=== PATIENT | female | born 1990 | race Caucasian/White ===

== ENCOUNTER 2016-04-22 14:41 | Emergency (ER) | payer OTHER ==
[~2016-04-22] VITALS: Ht 160 cm; Wt 83.5 kg
[2016-04-22 14:59] VITALS: BP 125/94
--- NOTE | 2016-04-22 15:02 | NUR ---
PATIENT AMBULATED TO ER BED 4.
[2016-04-22] MEDS ORDERED: NACL 0.9% 1,000 ML IV ONE (15:10)
--- NOTE | 2016-04-22 15:13 | NUR ---
Patient being evaluated by physician at bedside.
--- NOTE | 2016-04-22 15:22 | NUR ---
PATIENT PRESENTS TO ED WITH GENERALIZED WEAKNESS . PT STATES SHE WAS FEELING ANXIOUS 2 DAYS AGO AND HER UNCLE GAVE HER 6 PILLS TO CALM DOWN, PT. STATES SHE LATER FOUND OUT THEY WERE EFFEXOR . DENIES N/V/D; SKIN IS PINK/WARM/DRY; AAOX4 WITH EVEN AND STEADY GAIT; LUNGS CLEAR BL; HR EVEN AND REGULAR; PT DENIES ANY FEVER, CP, SOB, OR COUGH AT THIS TIME; PATIENT STATES PAIN OF 7/10 AT THIS TIME; VSS; PATIENT POSITIONED FOR COMFORT; HOB ELEVATED; BEDRAILS UP X2; BED DOWN. ER MD MADE AWARE OF PT STATUS.
[2016-04-22 15:29] LABS: BASOPHILS # (AUTO) 0.2 K/uL (0.00-0.22); BASOPHILS % (AUTO) 2.1 % (0.0-2.0); EOSINOPHILS # (AUTO) 0.4 K/uL (0-0.4); EOSINOPHILS % (AUTO) 3.6 % (0.0-4.0); HEMATOCRIT 38.7 % (36-48); HEMOGLOBIN 12.3 g/dL (12.0-16.0); MEAN CORPUSCULAR HEMOGLOBIN 25 pg (27-31); MEAN CORPUSCULAR HGB CONC 32 g/dL (33-37); MEAN CORPUSCULAR VOLUME 79 fL (80-94); MONOCYTES # (AUTO) 0.7 K/uL (0.8-1.0); NEUTROPHILS % (AUTO) 58.3 % (42.2-75.2); PLATELET COUNT (AUTO) 337 K/uL (140-450); RED BLOOD CELL COUNT(AUTO) 4.89 MIL/uL (4.20-5.40); WHITE BLOOD COUNT (AUTO) 10.3 K/uL (4.8-10.8)
[2016-04-22 15:43] LABS: ANION GAP 9.8 (8-16); CALCIUM 8.5 mg/dL (8.5-10.1); CARBON DIOXIDE 30.1 mmol/L (21-32); CREATININE 0.8 mg/dL (0.6-1.3); POTASSIUM 3.9 mmol/L (3.5-5.1)
[2016-04-22 15:48] LABS: ALBUMIN 3.6 g/dL (3.4-5.0); TOTAL BILIRUBIN 0.4 mg/dL (0.0-1.0); TOTAL PROTEIN, SERUM 7.6 g/dL (6.4-8.2)
--- NOTE | 2016-04-22 15:58 | NUR ---
PT LYING ON BED COMFORTABLY;NO ACUTE DISTRESS NOTED AT THIS TIME;WILL CONTINUE TO MONITOR PT.
[2016-04-22 16:02] LABS: INR 1.1 (0.8-1.2); PARTIAL THROMBOPLASTIN TIME 30.8 secs (22-35.6); PROTHROMBIN TIME 10.7 secs (10.8-13.4)
[2016-04-22 16:03] LABS: D-DIMER < 100 ng/ml (0-400)
--- NOTE | 2016-04-22 16:53 | NUR ---
PT VERBALIZED"I'M FEELING MUCH BETTER";NO ACUTE DISTRESS NOTED AT THIS TIME;WILL CONTINUE TO MONITOR PT.
--- NOTE | 2016-04-22 17:28 | NUR ---
Patient discharged with v/s stable. Written and verbal after care instructions given and explained.Patient alert, oriented and verbalized understanding of instructions. Ambulatory with steady gait. All questions addressed prior to discharge. ID band removed. Patient advised to follow up with PMD.Opportunity to ask questions provided and answered.ENCOURAGED PT TO INCREASE FLUID INTAKE AND PT AGREED W/ IT.
[2016-04-22 17:29] VITALS: BP 124/62
== END 2016-04-22 17:28 | disposition home or self-care (01) ==
LOC: MED 14:41
DX: T43.215A Adverse effect of selective serotonin and norepinephrine reuptake inhibitors, initial encounter (principal); R42 Dizziness and giddiness; R53.1 Weakness; R53.81 Other malaise; F31.9 Bipolar disorder, unspecified; Y92.89 Other specified places as the place of occurrence of the external cause
CPT/HCPCS: 36415; 71010; 80053; 82553; 83880; 84484; 85025; 85379; 85610; 85730; 93005; 96360; 99285; J7030; Q0092

== ENCOUNTER 2019-06-27 08:23 | Emergency (ER) | payer SELFPAY ==
[~2019-06-27] VITALS: Ht 160 cm; Wt 86.6 kg
[2019-06-27 08:24] VITALS: BP 165/97
--- NOTE | 2019-06-27 08:24 | NUR ---
AMBULATEDTO ER BED 4
--- NOTE | 2019-06-27 08:53 | NUR ---
dr stapleton at bedside
--- NOTE | 2019-06-27 08:53 | NUR ---
c/o 2 bug bites to lower abd x1 day, denies fever. localized tendernessand redness. pain 8/10 in severity to sites. pt states she was working in the yard all day yesterday. pt states she did not see the bug itself. hx bipolar
[2019-06-27 08:59] VITALS: BP 154/85
--- NOTE | 2019-06-27 08:59 | NUR ---
Patient discharged with v/s stable. Written and verbal after care instructions given and explained. Patient alert, oriented and verbalized understanding of instructions. Ambulatory with steady gait. All questions addressed prior to discharge. ID band removed. Patient advised to follow up with PMD. Rx of benadryl given. Patient educated on indication of medication including possible reaction and side effects. Opportunity to ask questions provided and answered. pt instructed that bite itself may be there for approx 1 week. insructed to take tylenol and motrin prn pain keep site clean and dry
== END 2019-06-27 08:59 | disposition home or self-care (01) ==
LOC: MED 08:23
DX: R21 Rash and other nonspecific skin eruption (principal); L29.9 Pruritus, unspecified; W57.XXXA Bitten or stung by nonvenomous insect and other nonvenomous arthropods, initial encounter; Y93.89 Activity, other specified; Y92.89 Other specified places as the place of occurrence of the external cause; Y99.8 Other external cause status
CPT/HCPCS: 99282

== ENCOUNTER 2019-07-23 15:16 | Emergency (ER) | payer MEDICAID ==
[~2019-07-23] VITALS: Ht 160 cm; Wt 87.5 kg
[2019-07-23 15:21] VITALS: BP 119/72
[2019-07-23] MEDS ORDERED: ACETAMINOPHEN 325 MG TAB PO ONE (15:35)
[2019-07-23] MEDS ORDERED: cefTRIAXone 1,000 MG in LIDOCAINE MPF 1% 2.1 ML IM ONE (15:35)
[2019-07-23] MEDS ORDERED: LIDOCAINE MPF 1% 5 ML ONE (15:39)
[2019-07-23] MEDS ORDERED: cefTRIAXone 1,000 MG VIAL ONE (15:39)
[2019-07-23 15:55] VITALS: BP 119/72
== END 2019-07-23 15:56 | disposition home or self-care (01) ==
LOC: MED 15:16
DX: L03.311 Cellulitis of abdominal wall (principal); F32.9 Major depressive disorder, single episode, unspecified; F41.9 Anxiety disorder, unspecified
CPT/HCPCS: 96372; 99283; J0696; J2001

== ENCOUNTER 2019-11-12 13:48 | Emergency (ER) | payer MEDICAID, OTHER ==
[~2019-11-12] VITALS: Ht 157.5 cm; Wt 89.8 kg
[2019-11-12 13:52] VITALS: BP 150/84
--- NOTE | 2019-11-12 13:55 | NUR ---
Pt ambulated to lobby with steady gait
--- NOTE | 2019-11-12 14:12 | NUR ---
Pt ambulated to bed 12
--- NOTE | 2019-11-12 14:14 | NUR ---
28 y/o female from home c/o rash to left upper leg and lower abd x 2 wks. Pt states she had surgery for staph infection a few months ago and feels the same as before. 8/10 burning pain. Redness noted to abd and left upper leg. Skin warm and dry. Has not taken medication for pain. VSS
--- NOTE | 2019-11-12 14:17 | NUR ---
Dr Hurtado at bedside examining pt
--- NOTE | 2019-11-12 14:35 | NUR ---
Patient discharged with v/s stable. Written and verbal after care instructions given and explained. Patient alert, oriented and verbalized understanding of instructions. Ambulatory with steady gait. All questions addressed prior to discharge. ID band removed. Patient advised to follow up with PMD. Rx of Naprosyn 500 and Bactrim 800mg-160mg given. Patient educated on indication of medication including possible reaction and side effects. Opportunity to ask questions provided and answered.
== END 2019-11-12 14:35 | disposition home or self-care (01) ==
LOC: MED 13:48
DX: L03.311 Cellulitis of abdominal wall (principal); R03.0 Elevated blood-pressure reading, without diagnosis of hypertension; F17.210 Nicotine dependence, cigarettes, uncomplicated
CPT/HCPCS: 99283

== ENCOUNTER 2019-12-08 07:07 | Emergency (ER) | payer OTHER ==
[~2019-12-08] VITALS: Ht 160 cm; Wt 84.8 kg
[2019-12-08 07:15] VITALS: BP_SYST 153; BP_DIAS 74; BP_DIAS 76
--- NOTE | 2019-12-08 07:23 | NUR ---
BIBS from home with c/o rash diagnosed 3 days ago at [facility], under breasts, right under arm and left groin. Given antibiotics Bactrim for staph infection, having increased pain 8/. Taking antibiotics as prescribed. A, A, O x4, cooperative, in NAD HOB elevated, VVS, resp even and unlabored Moving all exts w/o difficulty Awaiting evaluation by MD, will continue to monitor
--- NOTE | 2019-12-08 07:32 | NUR ---
MD at bedside to evaluate patient
--- NOTE | 2019-12-08 08:27 | NUR ---
Patient medically cleared for discharge by MD. Right lateral and underarm lesions redressed with gauze and tape. Given copy of discharge instructions and 2 prescriptions. Explained instructionas and scripts. Questions answered. No IV. VVS Resp even and unlabored, in NAD. ID band removed, sressed in street clothes, gait steady. Left ED with all belongings to private auto
== END 2019-12-08 08:20 | disposition home or self-care (01) ==
LOC: MED 07:07
DX: B02.9 Zoster without complications (principal); L03.312 Cellulitis of back [any part except buttock and flank]; L03.313 Cellulitis of chest wall
CPT/HCPCS: 99283

== ENCOUNTER 2020-10-29 14:37 | Emergency (ER) | payer OTHER ==
[~2020-10-29] VITALS: Ht 160 cm; Wt 86.2 kg
[2020-10-29 14:45] VITALS: BP 145/86
[2020-10-29] MEDS ORDERED: CEPH-588 PO (15:04)
[2020-10-29] MEDS ORDERED: NAPR-54 PO (15:04)
--- NOTE | 2020-10-29 15:10 | NUR ---
NO NURSING INTERVENTIONS DONE, NO COMPLETE ASSESSMENT NEEDED.
[2020-10-29 15:11] VITALS: BP 132/81
--- NOTE | 2020-10-29 15:12 | NUR ---
Patient discharged with v/s stable. Written and verbal after care instructions given and explained. Patient alert, oriented and verbalized understanding of instructions. Ambulatory with steady gait. All questions addressed prior to discharge. ID band removed. Patient advised to follow up with PMD. Rx of NAPROXEN AND KEFLEX given. Patient educated on indication of medication including possible reaction and side effects. Opportunity to ask questions provided and answered.
== END 2020-10-29 15:11 | disposition home or self-care (01) ==
LOC: MED 14:37
DX: N61.1 Abscess of the breast and nipple (principal)
CPT/HCPCS: 99283

== ENCOUNTER 2022-10-15 16:24 | Emergency (ER) | payer MEDICAID, OTHER ==
[~2022-10-15] VITALS: Ht 160 cm; Wt 86.2 kg
[~2022-10-15 16:24] MED LIST: CEPH-588 PO; NAPR-54 PO
[2022-10-15 16:32] VITALS: BP 173/98; PULSE 113; RESP 17; TEMP 97.9; O2SAT 98
[2022-10-15 16:35] VITALS: O2SAT 98
[2022-10-15] MEDS ORDERED: CYCLOBENZAPRINE 10 MG TAB PO ONE (16:45)
[2022-10-15] MEDS ORDERED: KETOROLAC 30 MG/ML VIAL IM ONE (16:45)
[2022-10-15] MEDS ORDERED: LIDOCAINE/PRILOCAINE 2.5% 5 GM TUBE TP ONE (16:45)
[2022-10-15] MEDS ORDERED: CYCL-711 PO (18:02)
[2022-10-15] MEDS ORDERED: IBUP-1842 PO (18:02)
[2022-10-15] MEDS ORDERED: EMLAC TP ×2 (18:02→18:11)
[2022-10-15 18:30] VITALS: BP 138/78; PULSE 99; RESP 18; O2SAT 98
== END 2022-10-15 18:28 | disposition home or self-care (01) ==
LOC: MED 16:24
DX: M54.50 Low back pain, unspecified (principal); Z79.899 Other long term (current) drug therapy
CPT/HCPCS: 72110; 81025; 96372; 99283; J1885

== ENCOUNTER 2023-04-28 12:39 | Emergency (ER) | payer MEDICAID ==
[~2023-04-28] VITALS: Ht 157.5 cm; Wt 86.2 kg
[~2023-04-28 12:39] MED LIST changes: +CYCL-711 PO; +EMLAC TP; +IBUP-1842 PO
[2023-04-28 12:49] VITALS: BP 123/92; PULSE 127; RESP 19; TEMP 96.9; O2SAT 99
[2023-04-28] MEDS ORDERED: ACETAMINOPHEN EXTRA STRENGTH 500 MG TAB ONE ×2 (13:24→13:25)
[2023-04-28 13:26] LABS: BASOPHILS % (AUTO) 0.4 % (0.0-2.0); EOSINOPHILS # (AUTO) 0.1 K/uL (0-0.4); EOSINOPHILS % (AUTO) 0.5 % (0.0-4.0); HEMATOCRIT 38.8 % (36-48); HEMOGLOBIN 12.9 g/dL (12.0-16.0); LYMPHOCYTES # (AUTO) 0.8 K/uL (2.5-16.5); MEAN CORPUSCULAR HEMOGLOBIN 24 pg (27-31); MEAN CORPUSCULAR HGB CONC 33 g/dL (33-37); MEAN CORPUSCULAR VOLUME 73.3 fL (80-94); MONOCYTES # (AUTO) 0.8 K/uL (0.8-1.0); MONOCYTES % (AUTO) 8.3 % (1.7-9.3); NEUTROPHILS # (AUTO) 8.5 K/uL (1.8-7.7); NEUTROPHILS % (AUTO) 82.8 % (42.2-75.2); PLATELET COUNT (AUTO) 284 K/uL (140-450); RED CELL DISTRIBUTION WIDTH 17.1 % (11.6-13.7); WHITE BLOOD COUNT (AUTO) 10.2 K/uL (4.8-10.8)
[2023-04-28] MEDS: ACETAMINOPHEN EXTRA STRENGTH 500 MG TAB PO ONE (13:30)
[2023-04-28 13:38] LABS: ANION GAP 10.7 (8-16); CALCIUM 8.4 mg/dL (8.5-10.1); CARBON DIOXIDE 29.8 mmol/L (21-32); POTASSIUM 3.5 mmol/L (3.5-5.1)
[2023-04-28 13:42] LABS: ALBUMIN 3.3 g/dL (3.4-5.0); BILIRUBIN,DIRECT 0.1 mg/dL (0.0-0.3); TOTAL BILIRUBIN 0.3 mg/dL (0.0-1.0); TOTAL PROTEIN, SERUM 7.7 g/dL (6.4-8.2)
[2023-04-28 13:49] LABS: APPEARANCE,URINE CLEAR (CLEAR); BILIRUBIN,URINE 1+ (NEGATIVE); BLOOD, URINE 3+ (NEGATIVE); COLOR,URINE YELLOW (YELLOW); LEUKOCYTE ESTERASE ,URINE TRACE (NEGATIVE); NITRITE, URINE NEGATIVE (NEGATIVE); PH,URINE 6.5 (5.0-9.0); PROTEIN,URINE 2+ (NEGATIVE); UGLUCOSE NEGATIVE (NEGATIVE)
[2023-04-28] MEDS: KETOROLAC 30 MG/ML VIAL IM ONE (14:24)
[2023-04-28] MEDS ORDERED: PHEN-1877 PO (14:25)
[2023-04-28] MEDS ORDERED: CEPH-588 PO (14:25)
[2023-04-28 14:57] LABS: ICTOTEST NEGATIVE (NEGATIVE); RBC,URINE >20 (MANY) /HPF (0-5); WBC,URINE 16-25 (MOD) /HPF (0-5)
[2023-04-28 14:58] LABS: BACTERIA,URINE 1+ /HPF (None Seen); SQUAMOUS EPITHELIAL CELL,UR 4-10 (MOD) /LPF (0-3 (FEW)); TRICHOMONAS,URINE Moderate /HPF (None Seen)
== END 2023-04-28 14:35 | disposition home or self-care (01) ==
LOC: MED 12:39
DX: N30.00 Acute cystitis without hematuria (principal); Z79.899 Other long term (current) drug therapy; Z88.2 Allergy status to sulfonamides; Z88.1 Allergy status to other antibiotic agents
CPT/HCPCS: 36415; 80048; 80076; 81001; 81025; 82550; 83690; 85025; 96372; 99283; J1885

== ENCOUNTER 2023-08-22 19:56 | Emergency (ER) | payer MEDICAID ==
[~2023-08-22] VITALS: Ht 162.6 cm; Wt 86.2 kg
[~2023-08-22 19:56] MED LIST changes: +NAPR-337 PO; -NAPR-54 PO; +PHEN-1877 PO
[2023-08-22 19:57] VITALS: BP 161/107; PULSE 124; RESP 16; TEMP 97.4; O2SAT 98
[2023-08-22 21:06] LABS: FLU A ANTIGEN negative (NEGATIVE); FLU B ANTIGEN NEGATIVE (NEGATIVE)
[2023-08-22] MEDS: KETOROLAC 30 MG/ML VIAL IM ONE (21:54)
[2023-08-22] MEDS ORDERED: IBUP-2213 PO (23:07)
[2023-08-22 23:19] VITALS: BP 148/100; PULSE 108; RESP 18; TEMP 97.4; O2SAT 99
== END 2023-08-22 23:19 | disposition home or self-care (01) ==
LOC: MED 19:56
DX: S09.90XA Unspecified injury of head, initial encounter (principal); U07.1 COVID-19; Z79.1 Long term (current) use of non-steroidal anti-inflammatories (NSAID); Z79.2 Long term (current) use of antibiotics; Z79.899 Other long term (current) drug therapy; Z88.2 Allergy status to sulfonamides; Z88.8 Allergy status to other drugs, medicaments and biological substances; W13.8XXA Fall from, out of or through other building or structure, initial encounter; Y93.89 Activity, other specified; Y92.89 Other specified places as the place of occurrence of the external cause; Y99.8 Other external cause status
CPT/HCPCS: 70450; 71045; 81025; 87426; 87804; 96372; 99285; J1885